=== PATIENT | female | born 1970 | race Two or more races ===

== ENCOUNTER 2018-09-30 07:00 | Day surgery (SDC) | payer OTHER ==
[~2018-09-30] VITALS: Ht 162.6 cm; Wt 88.5 kg
== END 2018-09-30 13:00 | disposition home or self-care (01) ==
LOC: O/R 07:00 → CIR.AMB 07:00 → ER 07:00 → EDSTATUS 08:00 → CIR.AMB 13:00 → O/R 14:15
DX: N84.0 Polyp of corpus uteri (principal)

== ENCOUNTER 2019-02-05 06:12 | Day surgery (SDC) | payer OTHER ==
[~2019-02-05] VITALS: Ht 157.5 cm; Wt 88.0 kg
[2019-02-05] MEDS ORDERED: DEXILANT60 MG PO (11:49)
[2019-02-05] MEDS ORDERED: PERCOCET 5-3251 EACH PO (11:49)
[2019-02-05] MEDS ORDERED: ZOFRAN8 MG PO (11:50)
[2019-02-05] MEDS ORDERED: DICY20TA PO (11:50)
== END 2019-02-05 13:00 | disposition home or self-care (01) ==
LOC: SURG 06:12 → CIR.AMB 06:12 → O/R 06:12 → SURG 10:15 → EDSTATUS 10:15 → CIR.AMB 13:00 → O/R 14:10
DX: K80.10 Calculus of gallbladder with chronic cholecystitis without obstruction (principal)